=== PATIENT | male | born 1985 | race Caucasian/White ===

== ENCOUNTER → 2019-08-23 13:20 | Outpatient (BNVA) | payer OTHER, SELFPAY | PROVIDERS: PCP Family Medicine; Visit Provider Nurse Practitioner | DX: F33.2 Major depressive disorder, recurrent severe without psychotic features (principal) | CPT/HCPCS: 99214 ==

== ENCOUNTER 2020-10-09 03:49 | Inpatient (IN) | payer SELFPAY ==
[2020-10-09] VITALS (9 sets, daily range): BP systolic 112–133; BP diastolic 66–85; PULSE 87–100; RESP 16–24; TEMP 37–37.9; O2SAT 95–99; BMI 24.3
--- NOTE | 2020-10-09 03:58 | W.ED.PSYCH ---
HPI - Psych General: Chief Complaint: Alcohol Stated Complaint: MHE/ETOH Time Seen by Provider: 10/09/20 03:54 Source: patient and EMS Mode of arrival: EMS Limitations: no limitations History of Present Illness: HPI Narrative: 35-year-old male who is here by EMS. Patient has been drinking tonight and he is a states he started having severe flashbacks and PTSD. He is very anxious states he just felt unsafe and was having flashbacks. He denies any suicidal. Patient does go on rant stating that he feels like murdering people he is on about people touch his kids and if we let him out of here he would go and murder them. He denies any drug use but states he was drinking heavily. He denies any fever. Denies any worsening improving factors. Denies any injuries. Associated symptoms: Reports homicidal ideation Review of Systems Const: Denies: fever(s), chills, body aches or change in appetite Eyes: Denies: blurry vision or eye discomfort ENMT: Denies: throat pain or dental pain Card: Denies: chest pain Resp: Denies: dyspnea GI: Denies: abdominal pain, nausea, vomiting or diarrhea : Denies: dysuria Musc: Denies: neck pain or back pain Skin/Breast: Denies: rash Neuro: Denies: headache(s) Psych: Reports: anxiety, panic attacks and homicidal ideation Sameer/Lymph: Denies: easy bruising All/Imm: Denies: urticaria PFSH ED PFSH: Medical History (Updated 08/23/19 @ 14:04 by LEONARD Sharma) Major depressive disorder, recurrent severe without psychotic features Other stimulant dependence, in remission Social History (Updated 08/23/19 @ 13:31 by Irina Thrasher LPN) Smoking and tobacco status: current every day smoker cigarettes Packs smoked per day: 1 Smoking risk assessment/counseling performed?: Yes Tobacco counseling given: counseling >3 minutes Physical Exam Const: COMMON NORMALS: patient oriented x3 GENERAL APPEARANCE: disheveled and odor of alcohol detected HENMT: COMMON NORMALS: normocephalic and atraumatic HEAD & SCALP: normocephalic and atraumatic Eye: COMMON NORMALS: Equal, round and reactive pupils present and EOMs intact bilaterally PUPIL: Yes Equal, round and reactive pupils present Neck/C-Spine: COMMON NORMALS: full ROM and supple Chest: COMMONS NORMALS: normal inspection of the chest and normal palpation of entire chest wall Resp: COMMON NORMALS: normal respiratory effort, No retractions, No use of accessory muscles and clear to auscultation bilaterally AUSCULTATION: clear to auscultation bilaterally Cardio: COMMON NORMALS: regular rate, regular rhythm and No murmurs present (Cardio) RATE: regular rate RHYTHM: regular rhythm GI: COMMON NORMALS: Normal to inspection, nondistended, normoactive bowel sounds present, Soft to palpation, non-tender and no masses PALPATION: Yes Soft to palpation Extremity: COMMON NORMALS: normal to inspection and full ROM Neuro: COMMON NORMALS: patient oriented x3, moves all extremities and no focal motor deficits Psych: COMMON NORMALS: mental status grossly normal SPEECH: Yes minimal MOOD & AFFECT: Yes anxious, Yes fearful and Yes hostile affect THOUGHT CONTENT: Yes Homicidality present and Yes Phobia(s) present Skin: COMMON NORMALS: no rashes or lesions noted and no wounds GENERAL SKIN EXAM: no rashes or lesions noted MDM - Psych MDM Narrative: Medical decision making narrative: Rudolph presents here with ankle intoxication along with homicidal ideations along with PTSD. He has been chemically sedated here as he has been agitated. I spoke to Dr. Rosales patient's medically cleared will admit to the psychiatric unit. Lab Data: Labs: Lab Results 10/09/20 10/09/20 10/09/20 Range/Units 04:05 04:05 04:09 WBC 13.0 H (4.0-10.0) 10^3/ uL RBC 5.60 H (4.1-5.3) 10^6/u L Hgb 17.0 H (11.7-16.6) g/dL Hct 50.7 (42.0-52.0) % MCV 90.5 (80-94) fL MCH 30.4 (28.0-34.0) pg MCHC 33.5 (30.0-36.0) g/dL RDW 13.0 (12.1-15.1) % Plt Count 327 (130-400) 10^3/c mm MPV 10.3 (7.4-10.4) fL Neut % (Auto) 61.2 % Lymph % (Auto) 32.7 % Jennings % (Auto) 4.3 % Eos % (Auto) 1.0 % Baso % (Auto) 0.5 % Neut # (Auto) 7.96 H (1.8-7.7) 10^3/u L Lymph # (Auto) 4.3 (0.8-4.8) 10^3/u L Jennings # (Auto) 0.6 (0.2-0.9) 10^3/u L Eos # (Auto) 0.1 (0.0-0.8) 10^3/u L Baso # (Auto) 0.1 (0.0-0.1) 10^3/u L Nucleated RBC % (a uto) 0 % Nucleated RBCs # 0.0 /100WBC Sodium 149 H (136-145) mmol/L Potassium 3.6 (3.5-5.1) mmol/L Chloride 112 H (98-107) mmol/L Carbon Dioxide 20 L (22-29) mmol/L Anion Gap 20.6 H (5-19) BUN 13 (6-20) mg/dL Creatinine 0.6 L (0.7-1.2) mg/dL GFR Calculation 154.2 H (90-130) mL/min Glucose 94 (65-115) mg/dL Calculated Osmolal ity 308 H (285-295) mOsm/k g Calcium 9.5 (8.5-10.5) mg/dL Total Bilirubin 0.3 (0.15-1.2) mg/dL AST 19 (0-40) U/L ALT 15 (0-41) U/L Alkaline Phosphata se 87 (40-130) IU/L Total Protein 7.9 (6.6-8.7) g/dL Albumin 5.0 (3.5-5.2) g/dL Globulin 2.9 (1.3-4.6) g/dL Salicylates < 0.3 L (3-10) mg/dL Urine Opiates Scre en Negative (Negative) ng/mL Acetaminophen < 5.0 L (10-30) ug/mL Ur Barbiturates Sc reen Negative (Negative) ng/mL Ur Phencyclidine S crn Negative (Negative) ng/mL Ur Amphetamines Sc reen Negative (Negative) ng/mL U Benzodiazepines Scrn Negative (Negative) ng/mL Urine Cocaine Scre en Negative (Negative) ng/mL U Marijuana (THC) Screen Negative (Negative) ng/mL Ethyl Alcohol 260 H (0-10) mg/dL Discharge Plan Discharge Prescriptions: No Action trazodone 100 mg tablet 200 mg PO .at bed Qty: 60 RF: 2 sertraline [Zoloft] 100 mg tablet 200 mg PO DAILY Qty: 60 RF: 2 levothyroxine 50 mcg capsule 50 mcg PO DAILY Qty: 30 RF: 2 carbamazepine [Tegretol] 200 mg tablet 200 mg PO BID Qty: 60 RF: 2 clonazepam 1 mg tablet 1 mg PO DAILY PRN (Reason: anxiety) Qty: 30 RF: 1 Coding Level of Care Code ED Carpet Finishing Supervisor for David Fwd Exam Comprehensive
[2020-10-09] MEDS: LORazepam 2 mg/mL INJ 1 mL IV (04:12)
[2020-10-09 04:13] LABS: Basophils # 0.1 10^3/uL (0.0-0.1); Basophils % 0.5 %; Eosinophils # 0.1 10^3/uL (0.0-0.8); Hematocrit 50.7 % (42.0-52.0); Lymphocytes # 4.3 10^3/uL (0.8-4.8); Lymphocytes % 32.7 %; Mean Corpuscular HGB Conc 33.5 g/dL (30.0-36.0); Mean Corpuscular Hemoglobin 30.4 pg (28.0-34.0); Mean Corpuscular Volume 90.5 fL (80-94); Mean Platelet Volume 10.3 fL (7.4-10.4); Monocytes # 0.6 10^3/uL (0.2-0.9); Monocytes % 4.3 %; Neutrophils # 7.96 10^3/uL (1.8-7.7); Neutrophils % 61.2 %; Nucleated Red Blood Cells % 0 %; Platelet Count 327 10^3/cmm (130-400)
--- NOTE | 2020-10-09 04:14 | PC.NURSE ---
When asked if pt the Suicide Assessment questions pt kept repeating I'd rather not answer those questions. Physician notified.
--- NOTE | 2020-10-09 04:14 | PC.NURSE ---
patient placed in paper scrubs by nurse x2. patient used urinal with nurse assist standby.
--- NOTE | 2020-10-09 04:20 | PC.NURSE ---
Pt stating If you let me out of here, if you take your eyes off of me for 1 second, I'm going to kill everyone of them motherf*ckollie . Pt placed on SI/HI precautions. Affidavit form filled out.
[2020-10-09 04:30] LABS: Amphetamines Screen Urine Negative (Negative); Barbiturates Screen Urine Negative (Negative); Benzodiazepines Screen Urine Negative (Negative); Cocaine Screen Urine Negative (Negative); Opiate Screen Urine Negative (Negative); PCP Screen Urine Negative (Negative); THC Screen Urine Negative (Negative)
[2020-10-09 04:32] LABS: Alanine Aminotransferase 15 U/L (0-41); Alcohol Level 260 mg/dL (0-10); Alkaline Phosphatase 87 IU/L (40-130); Anion Gap 20.6 (5-19); Aspartate Amino Transferase 19 U/L (0-40); Blood Urea Nitrogen 13 mg/dL (6-20); Calcium 9.5 mg/dL (8.5-10.5); Carbon Dioxide 20 mmol/L (22-29); Chloride 112 mmol/L (98-107); Globulin 2.9 g/dL (1.3-4.6); Glomerular Filtration Rate 154.2 mL/min (90-130); Glucose 94 mg/dL (65-115); Osmolality Calculated 308 mOsm/kg (285-295); Potassium 3.6 mmol/L (3.5-5.1); Sodium 149 mmol/L (136-145); Total Bilirubin 0.3 mg/dL (0.15-1.2); Total Protein 7.9 g/dL (6.6-8.7)
[2020-10-09] MEDS: LORazepam 2 mg/mL INJ 1 mL IVP ×2 (04:37→05:16)
[2020-10-09] MEDS: haloperidol inj 5 mg/mL INJ 1 mL IVP (04:46)
[2020-10-09 04:57] LABS: Acetaminophen < 5.0 ug/mL (10-30); Salicylate < 0.3 mg/dL (3-10)
--- NOTE | 2020-10-09 05:41 | PC.NURSE ---
patient very restless in bed, patient trying to fall over rails and end of bed. patient bed removed and mattress, blankets, and pillow left in the room for patient comfort and safety. patient iv removed for patient safety by nurse. patient unable to stay still, moving rolling and sitting up in room. patient placed with sitter due to patient activity.
--- NOTE | 2020-10-09 06:10 | PC.NURSE ---
patient resting quietly in bed.
--- NOTE | 2020-10-09 06:45 | PC.NURSE ---
Received report, assumed care. Staff standing in room, keeping pt safe from harming self after medication. Continue to monitor, keep at arms length. Sitter at doorway, and staff in room.
[2020-10-09] MEDS: multivitamin therapeutic Tablet 1 TAB PO (13:52)
[2020-10-09] MEDS: thiamine 100 mg Tablet PO (13:52)
[2020-10-09] MEDS: folic acid 1 mg Tablet PO (13:52)
[2020-10-09] MEDS: acetaminophen 325 mg Tablet 650 MG PO (19:43)
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
--- NOTE | 2020-10-09 19:50 | PC.NURSE ---
Tylenol 650mg given for temp. of 99.4 ; oral.
--- NOTE | 2020-10-09 20:54 | PC.NURSE ---
2013 reassessed temp. down to 98.9 ; oral
[2020-10-10 06:00] VITALS: BP 121/73; PULSE 65; RESP 16; TEMP 37; O2SAT 96
[2020-10-10] MEDS: nicotine 2 mg Gum BUCCAL ×2 (07:34→11:42)
[2020-10-10] MEDS: folic acid 1 mg Tablet PO (08:29)
[2020-10-10] MEDS: multivitamin therapeutic Tablet 1 TAB PO (08:29)
[2020-10-10] MEDS: thiamine 100 mg Tablet PO (08:29)
[2020-10-10] MEDS: acetaminophen 325 mg Tablet 650 MG PO (10:15)
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
[2020-10-10 15:36] VITALS: BP 121/73; PULSE 65; RESP 16; TEMP 37; O2SAT 96
== END 2020-10-10 15:45 | disposition home or self-care (01) | DRG 897 ==
LOC: ER 04:34 → NP 05:32
PROVIDERS: Emergency Medicine; Admitting Provider Psychiatry & Neurology Psychiatry; Emergency Provider Family Medicine; PCP Family Medicine; Visit Provider Psychiatry & Neurology Psychiatry
DX: F10.129 Alcohol abuse with intoxication, unspecified (principal); F33.2 Major depressive disorder, recurrent severe without psychotic features; Y90.9 Presence of alcohol in blood, level not specified; F43.12 Post-traumatic stress disorder, chronic; F41.1 Generalized anxiety disorder; R45.850 Homicidal ideations; Z81.8 Family history of other mental and behavioral disorders; F17.210 Nicotine dependence, cigarettes, uncomplicated; F15.11 Other stimulant abuse, in remission; F43.25 Adjustment disorder with mixed disturbance of emotions and conduct
CPT/HCPCS: 80053; 80306; 80307; 85025; 96374; 96375; 96376; 99285; J1630; J2060

== ENCOUNTER 2021-07-29 08:33 | Outpatient (CLI) | payer SELFPAY ==
--- NOTE | 2021-07-29 08:53 | XR_ITS ---
WS: [id number] SHOULDER RIGHT TECHNIQUE: 3 views of the right shoulder CLINICAL INFORMATION: fall rt arm injury COMPARISON: None. FINDINGS: Normal acromioclavicular joint. Normal glenohumeral joint. Acromion is normal in appearance. Normal g lenoid. No evidence of acute fracture dislocation. XR/XR shoulder RT min 2V* [id number] IMPRESSION: Normal right shoulder.
--- NOTE | 2021-07-29 08:53 | XR_ITS ---
WS: [id number] ELBOW RIGHT TECHNIQUE: 2 views of the right elbow CLINICAL INFORMATION: fall injury COMPARISON: None. FINDINGS: No significant joint effusion. Distal humerus is normal in appearance. Normal radial head. Normal ole cranon. No evidence of acute fracture dislocation. XR/XR elbow RT 2V [id number] IMPRESSION: No acute fractures
--- NOTE | 2021-07-29 08:53 | XR_ITS ---
WS: [id number] WRIST RIGHT TECHNIQUE: 3 views of the right wrist CLINICAL INFORMATION: fall with rt arm injury COMPARISON: None. FINDINGS: Normal radiocarpal joint. Scaphoid is normal in appearance. No evidence of radiocarpal dislocation. D istal radius and ulna are normal in appearance. Mild dorsal soft tissue edema. XR/XR wrist RT min 3V* [id number] IMPRESSION: Mild dorsal soft tissue edema. No visualized fractures.
== END 2021-07-29 08:34 | disposition home or self-care (01) ==
PROVIDERS: PCP Family Medicine Adult Medicine; Visit Provider Family Medicine Adult Medicine
DX: S49.91XA Unspecified injury of right shoulder and upper arm, initial encounter (principal); W19.XXXA Unspecified fall, initial encounter; R60.0 Localized edema
CPT/HCPCS: 73030; 73070; 73110